=== PATIENT | female | born 1965 | race Caucasian/White ===

== ENCOUNTER 2017-05-25 07:34 | Emergency (ER) | payer OTHER ==
[~2017-05-25] VITALS: Ht 175.3 cm; Wt 59.0 kg
[~2017-05-25 07:34] MED LIST: ALDACTONE25 MG PO; HYDROCODON-ACE1 EAC3 PO; NORVASC10 MG PO
== END 2017-05-25 08:04 | disposition home or self-care (01) ==
LOC: ED 07:34
DX: Z00.8 Encounter for other general examination (principal)